=== PATIENT | male | born 1985 | race Caucasian/White ===

== ENCOUNTER 2022-11-05 18:44 | Emergency (ER) | payer BC ==
[2022-11-05] MEDS ORDERED: BACITRACIN ZINC OINT 1 PACKET TOP STA (19:51)
[2022-11-05] MEDS ORDERED: TETANUS/DIPHTHERIA/PERTUSSIS 0.5 ML SYRINGE IM ONE (19:51)
[2022-11-05] MEDS ORDERED: AMOX/CLAV 875 MG/125 MG TABLET PO STA (19:52)
--- NOTE | 2022-11-05 19:57 | ED Physician Documentation ---
History of Present Illness - Stated complaint Stated Complaint: DOG BITE - Chief complaint Chief Complaint: Wound - Additonal information Additional information: 37-year-old male presents emergency department for evaluation of dog bite injury to his right hand. His dog who is 9 years old and sick began to have a seizure. After the seizure stopped the dog woke up and was mildly confused and then bit his hand. He reports the dog's immunizations as up-to-date. Patient does need a tetanus today. He is right-hand dominant. Review of Systems Skin: reports: Bite / sting PD PAST MEDICAL HISTORY - Present Medications Home Medications: Ambulatory Orders Medication Instructions Recorded Confirmed Amox/Clav 875/125 [Augmentin] 1 each PO Q12H #20 tablet 11/05/22 - Allergies Allergies/Adverse Reactions: Allergies Allergy/AdvReac Type Severity Reaction Status Date / Time No Known Drug Allergies Allergy Verified 11/05/22 18:52 PD ED PE EXPANDED - Extremities Extremities: Right hand (2 superficial puncture wounds on the dorsum of the right hand between the thumb and index finger. Larger laceration/puncture wound volar aspect of the palm measuring about 2.5 cm. Exposed fatty tissue and muscle. Neurovascular intact. Normal movement of the hand and fingers as well as wrist.) Results - Vitals Vitals: Vital Signs - 24 hr 11/05/22 11/05/22 18:49 19:49 Temperature 36.4 C L Heart Rate 70 Respiratory 16 18 Rate Blood Pressure 160/90 H O2 Saturation 100 Oxygen O2 Source Room air Procedures - Laceration (location) right hand Length in cm: 3 Wound type: Linear, Into subcut fat, Into muscle, Contaminated Anesthesia: Lidocaine 1% Wound preparation: Chlorhexadine, Irrigated copiously NS Skin layer closure: Nylon, Interrupted, Size #-0 - enter number (4), Sutures - enter # (2) Other: Patient tolerated well, No complications, Neurovascular intact, Tetanus booster given PD Medical Decision Making - ED course Complexity details: d/w patient ED course: 37-year-old male presents emergency department for evaluation of bite wound to his right hand sustained when his dog bit him After his dog had a seizure and then woke up confused. His tetanus was updated today. The more superficial bite wounds on the top of the hand were simply irrigated and bacitracin was applied. The bite laceration wound on the palm was approximated with only 2 sutures. Patient will be started on Augmentin. His first dose given here in the ER. I did discuss usual routine wound care as well as emergent return precautions for concerns of infection Departure - Departure Disposition: 01 Home, Self Care Clinical Impression: Dog bite Qualifiers: Encounter type: initial encounter Qualified Code(s): W54.0XXA - Bitten by dog, initial encounter Hand laceration Qualifiers: Encounter type: initial encounter Foreign body presence: without foreign body Laterality: right Qualified Code(s): S61.411A - Laceration without foreign body of right hand, initial encounter Condition: Stable Record reviewed to determine appropriate education?: Yes Instructions: ED Bite Animal General Prescriptions: Amox/Clav 875/125 [Augmentin] 1 each PO Q12H #20 tablet Comments: Vj your dog unfortunately bit your right hand. You do have 2 more superficial puncture wounds on the top of the hand as well as a larger laceration wound on your palm. These wounds are at high risk for infection. Please fill the prescription for the Augmentin and begin taking as directed. [facility] [place] In general I do recommend that you take Tylenol or ibuprofen [id number] for discomfort. our suture(s) should be removed in 7 to 10 days. In 24 hours you may remove the dressing wash gently with warm soap and water, apply any antibiotic ointment and a simple bandage. Your tetanus is up-to-date. Please attempt to keep your wound clean and dry. Do not submerge it in dirty dishwater or bath water. Return to the emergency department if you have any concerns of infection such as redness, fevers milky drainage increased pain.
[2022-11-05 20:26] VITALS: BP 134/74
== END 2022-11-05 20:24 | disposition home or self-care (01) ==
LOC: ED 18:44
DX: S61.451A Open bite of right hand, initial encounter (principal); W54.0XXA Bitten by dog, initial encounter; Z23 Encounter for immunization
CPT/HCPCS: 12002; 90471; 90715; 99283; A9270